=== PATIENT | female | born 1970 | race Asian ===

== ENCOUNTER 2023-08-30 11:50 | Emergency (ER) | payer OTHER ==
[~2023-08-30] VITALS: Ht 154.9 cm; Wt 61.4 kg
[2023-08-30 11:57] VITALS: BP 143/88; PULSE 76; RESP 18; TEMP 98.2
[2023-08-30] MEDS: ACETAMINOPHEN 500 MG TABLET PO ONE (17:11)
[2023-08-30] MEDS: METHOCARBAMOL 500 MG TABLET PO ONE (17:11)
[2023-08-30] MEDS ORDERED: METH-659 PO (18:41)
[2023-08-30] MEDS ORDERED: ACET-66 PO (18:41)
== END 2023-08-30 19:04 | disposition home or self-care (01) ==
LOC: EMS 11:50
DX: S70.02XA Contusion of left hip, initial encounter (principal); S30.0XXA Contusion of lower back and pelvis, initial encounter; J45.909 Unspecified asthma, uncomplicated; E78.00 Pure hypercholesterolemia, unspecified; I10 Essential (primary) hypertension; X58.XXXA Exposure to other specified factors, initial encounter; Y93.89 Activity, other specified; Y92.89 Other specified places as the place of occurrence of the external cause; Y99.8 Other external cause status
CPT/HCPCS: 72100; 73503; 99284